=== PATIENT | female | born 1985 | race Caucasian/White ===

== ENCOUNTER 2019-02-07 19:57 | Inpatient (IN) | payer OTHER ==
[~2019-02-07] VITALS: Ht 162.6 cm; Wt 70.8 kg
[2019-02-07] MEDS ORDERED: PRENATAL TABLE1 EAC1 PO (21:48)
== END 2019-02-10 17:08 | disposition home or self-care (01) | DRG 833 ==
LOC: OBS/DEL 19:57 → OB/GYN 02-08 08:25 → LDR 02-08 08:25 → OB/GYN 02-09 08:21
PROVIDERS: ADMIT Obstetrics & Gynecology
PROC: 4A1HXCZ Monitoring of Products of Conception, Cardiac Rate, External Approach (ICD-10-PCS; 2019-02-07)
PROC: BY4FZZZ Ultrasonography of Third Trimester, Single Fetus (ICD-10-PCS; principal; 2019-02-10)
DX: O26.843 Uterine size-date discrepancy, third trimester (principal); O60.03 Preterm labor without delivery, third trimester

== ENCOUNTER 2019-02-13 10:11 | Outpatient (CLI) | payer OTHER ==
[~2019-02-13 10:11] MED LIST: PRENATAL TABLE1 EAC1 PO
== END 2019-02-13 11:11 | disposition home or self-care (01) ==
LOC: NST 10:11
DX: Z34.83 Encounter for supervision of other normal pregnancy, third trimester (principal)

== ENCOUNTER 2019-02-20 09:34 | Outpatient (CLI) | payer OTHER | END 2019-02-20 10:28 | disposition home or self-care (01) | LOC: NST 09:34 | DX: Z34.83 Encounter for supervision of other normal pregnancy, third trimester (principal) ==

== ENCOUNTER 2019-03-20 09:56 | Outpatient (CLI) | payer OTHER | END 2019-03-20 11:37 | disposition home or self-care (01) | LOC: NST 09:56 | DX: Z34.83 Encounter for supervision of other normal pregnancy, third trimester (principal) ==

== ENCOUNTER 2019-03-31 10:49 | Inpatient (IN) | payer OTHER ==
[~2019-03-31] VITALS: Ht 162.6 cm; Wt 77.1 kg
[2019-04-27] MEDS ORDERED: IRON325 MG PO (09:02)
== END 2019-04-29 13:50 | disposition home or self-care (01) | DRG 807 ==
LOC: LDR 04-27 07:36 → OB/GYN 04-27 17:23 → LDR 04-30 12:00 → OB/GYN 04-30 12:00
PROVIDERS: ADMIT Obstetrics & Gynecology Maternal & Fetal Medicine
PROC: 10E0XZZ Delivery of Products of Conception, External Approach (ICD-10-PCS; principal; 2019-04-27)
PROC: 10907ZC Drainage of Amniotic Fluid, Therapeutic from Products of Conception, Via Natural or Artificial Opening (ICD-10-PCS; 2019-04-27)
PROC: 0W8NXZZ Division of Female Perineum, External Approach (ICD-10-PCS; 2019-04-27)
PROC: 4A1HXCZ Monitoring of Products of Conception, Cardiac Rate, External Approach (ICD-10-PCS; 2019-04-27)
DX: O80 Encounter for full-term uncomplicated delivery (principal); Z37.0 Single live birth; Z3A.39 39 weeks gestation of pregnancy; Z22.330 Carrier of Group B streptococcus